=== PATIENT | female | born 1970 | race Caucasian/White ===

== ENCOUNTER 2021-06-22 06:24 | Day surgery (SDC) | payer BC ==
[2021-06-18 11:58] LABS: BASOPHILS % (AUTO) 0.5 % (0.0-5.0); EOSINOPHILS % (AUTO) 0.4 % (0.0-8.0); HEMATOCRIT 42.6 % (36-48); LYMPHOCYTES % (AUTO) 35.2 % (21.0-51.0); MEAN CORPUSCULAR HEMOGLOBIN 27.6 pg (27.0-33.0); MEAN CORPUSCULAR HGB CONC 30.5 g/dL (32.0-36.0); MEAN CORPUSCULAR VOLUME 90.4 fL (79-99); MONOCYTES % (AUTO) 3.8 % (3.0-13.0); NEUTROPHILS % (AUTO) 59.7 % (40.0-77.0); PLATELET COUNT (AUTO) 264 K/uL (130-400); RED BLOOD CELL COUNT(AUTO) 4.71 MIL/uL (4.00-5.50); RED CELL DISTRIBUTION WIDTH 14.6 % (11.0-15.5); WHITE BLOOD COUNT (AUTO) 8.2 K/uL (4.8-10.8)
[2021-06-18 11:59] LABS: CREATININE 0.6 mg/dL (0.5-1.5); POTASSIUM 4.1 mmol/L (3.5-5.1)
[2021-06-21 10:13] VITALS: BP 137/71
[2021-06-22] VITALS (19 sets, daily range): BP systolic 99–138; BP diastolic 41–87
[~2021-06-22] VITALS: Ht 160 cm; Wt 73.6 kg
[2021-06-22] MEDS: CEFAZOLIN SODIUM 2 GM VIAL IV SCH ×2 (05:00→09:52)
[~2021-06-22 06:24] MED LIST: APRE30TA2 PO; CHOL4PAC21 PO; MIDO10TA PO; VITAMIN D PO
[2021-06-22] MEDS ORDERED: LACTATED RINGERS 1000ML 1,000 ML IV ONE (06:44)
[2021-06-22] MEDS ORDERED: CEFAZOLIN SODIUM 1 GM VIAL ONE (06:44)
[2021-06-22] MEDS ORDERED: ONDANSETRON 4MG INJ ONE ×2 (08:24→12:00)
[2021-06-22] MEDS ORDERED: LIDOCAINE PF 100MG/5ML (2%) SYRINGE 5ML ONE ×2 (08:24→08:28)
[2021-06-22] MEDS ORDERED: SUCCINYLCHOLINE CHLORIDE 20 MG/ML 10 ML VIAL ONE ×2 (08:24→08:28)
[2021-06-22] MEDS ORDERED: DEXAMETHASONE SOD PHOSPHATE 10MG/ML 1ML VIAL ONE (08:24)
[2021-06-22] MEDS ORDERED: MIDAZOLAM HCL 1 MG/ML 2ML VIAL ONE (08:25)
[2021-06-22] MEDS ORDERED: ROCURONIUM 10MG/1ML SYR 10 MG/ML ML ONE (08:25)
[2021-06-22] MEDS ORDERED: FENTANYL CITRATE PF 50 MCG/1 ML 2ML VIAL ONE (08:25)
[2021-06-22] MEDS ORDERED: GLYCOPYRROLATE 1 MG/5 ML SYRINGE ONE (08:25)
[2021-06-22] MEDS ORDERED: NEOSTIGMINE 5MG/5ML SYR IV ONE (08:25)
[2021-06-22] MEDS ORDERED: PROPOFOL 10 MG/ML 20ML VIAL IV ONE (08:25)
[2021-06-22] MEDS ORDERED: PROPOFOL 1000 MG/100 ML 100 ML IV ONE (08:27)
[2021-06-22] MEDS ORDERED: PHENYLEPHRINE HCL 10 MG/ML 1ML VIAL IV ONE (08:28)
[2021-06-22] MEDS ORDERED: ROPIVACAINE 0.5% 5MG/ML 30ML IJ ONE (08:58)
[2021-06-22] MEDS ORDERED: MEPERIDINE-PF 25 MG/ML SYG ONE ×2 (10:02→12:00)
[2021-06-22] MEDS ORDERED: KETOROLAC 30MG VIAL (30MG/ML) ONE (12:00)
== END 2021-06-22 13:50 | disposition home or self-care (01) ==
LOC: DAH 06:24
PROVIDERS: ATTEND Orthopaedic Surgery
DX: M75.101 Unspecified rotator cuff tear or rupture of right shoulder, not specified as traumatic (principal); M75.01 Adhesive capsulitis of right shoulder; Z20.822 Contact with and (suspected) exposure to COVID-19; M75.51 Bursitis of right shoulder; G89.29 Other chronic pain; E66.01 Morbid (severe) obesity due to excess calories; G89.18 Other acute postprocedural pain; Z79.01 Long term (current) use of anticoagulants; Z98.890 Other specified postprocedural states; Z90.49 Acquired absence of other specified parts of digestive tract; Z68.29 Body mass index [BMI] 29.0-29.9, adult
CPT/HCPCS: 29826; 29827; 36415; 64415; 76942; 80048; 84703; 85025; 87635; A4215; A4221; A4222; A4223; A4510; A4565; A4600; A4649 ×4; A4663; A5120; A6204; A6207; A6260; C1713; C9803; J0330 ×2; J0690; J1100; J1885; J2001 ×2; J2175 ×2; J2250; J2370; J2405 ×2; J2704 ×2; J2710; J2795; J3010; J3490; J7120